=== PATIENT | male | born 1970 | race Caucasian/White ===

== ENCOUNTER 2016-10-19 17:32 | Emergency (ER) | payer BC ==
[~2016-10-19] VITALS: Ht 182.9 cm; Wt 79.4 kg
--- NOTE | 2016-10-19 17:32 | NUR ---
R FLANK PAIN X 2 DAYS. PT STATES IT FEELING LIKE KIDNEY STONES, HX OF KIDNEY STONES. NAD NOTED.PT AAO X4, AMB WITH STEADY GAIT. RR EVEN AND UNLABORED. PENDING MD GOODEN. PT PLACED IN GOWN AND MONITOR.
[2016-10-19] MEDS ORDERED: MORPHINE SULFATE INJ 2 MG/ML DISP.SYRIN IV ONE ×4 (18:00→21:30)
[2016-10-19] MEDS ORDERED: IV NS 0.9% 1,000 ML BAG IV ONE (18:00)
[2016-10-19] MEDS ORDERED: TAMSULOSIN 0.4 MG CAP.SR.24H PO ONE (18:00)
[2016-10-19] MEDS ORDERED: ONDANSETRON HCL/PF 4 MG/2 ML VIAL IVP ONE (18:00)
[2016-10-19] MEDS ORDERED: KETOROLAC TROMETHAMINE INJ 30 MG/ML VIAL IV ONE (18:00)
[2016-10-19] MEDS ORDERED: TAMSULOSIN 0.4 MG CAP.SR.24H ONE (18:12)
[2016-10-19] MEDS ORDERED: KETOROLAC TROMETHAMINE 15 MG/ML VIAL ONE (18:12)
[2016-10-19] MEDS ORDERED: IV NS 0.9% 1,000 ML ONE (18:12)
[2016-10-19] MEDS ORDERED: MORPHINE SULFATE INJ 2 MG/ML DISP.SYRIN ONE ×2 (18:12→20:04)
[2016-10-19] MEDS ORDERED: MORPHINE SULFATE INJ 4 MG/ML DISP.SYRIN ONE ×2 (18:12→21:30)
[2016-10-19] MEDS ORDERED: ONDANSETRON HCL/PF 4 MG/2 ML VIAL ONE (18:12)
[2016-10-19] MEDS ORDERED: IV SET PRIMARY 1 EA INFUS.SET MC ONE (18:12)
[2016-10-19 18:21] LABS: BASOPHILS # (AUTO) 0.8 /CMM (0.0-0.2); BASOPHILS % (AUTO) 4.3 % (0.0-2.0); EOSINOPHILS % (AUTO) 0.1 % (0.0-6.0); HEMATOCRIT 47 % (39-51); HEMOGLOBIN 16.5 g/dL (13.5-17.5); LYMPHOCYTES % (AUTO) 5.7 % (20.0-44.0); MEAN CORPUSCULAR HEMOGLOBIN 30 PG (26.0-33.0); MEAN CORPUSCULAR HGB CONC 35 g/dl (31.0-36.0); MEAN CORPUSCULAR VOLUME 87 fL (80-96); MONOCYTES # (AUTO) 0.6 /CMM (0.1-1.30); MONOCYTES % (AUTO) 3.6 % (2.0-12.0); NEUTROPHILS # (AUTO) 15.1 /CMM (1.8-8.9); NEUTROPHILS % (AUTO) 86.3 % (43.0-81.0); PLATELET COUNT (AUTO) 255 /CMM (150-450); RDW COEFFICIENT OF VARIATION 12.2 (11.5-15.0); RED BLOOD CELL COUNT(AUTO) 5.44 MIL/uL (4.5-6.0); WHITE BLOOD COUNT (AUTO) 17.5 K/uL (4.3-11.0)
--- NOTE | 2016-10-19 18:25 | NUR ---
PT TO CT
[2016-10-19 18:28] LABS: CALCIUM, SERUM 10.7 mg/dL (8.5-10.1); CREATININE 1.3 mg/dL (0.6-1.3); POTASSIUM 4.7 mmol/L (3.5-5.1)
[2016-10-19 18:36] LABS: ALBUMIN 4.6 g/dL (3.4-5.0); BILIRUBIN,DIRECT 0.1 mg/dL (0.0-0.2); TOTAL PROTEIN, SERUM 8.7 g/dL (6.4-8.2)
--- NOTE | 2016-10-19 18:40 | NUR ---
MEDICATIONS GIVEN ORDERED.
[2016-10-19 18:45] LABS: APPEARANCE,URINE Clear (CLEAR); BILIRUBIN,URINE Negative (NEGATIVE); BLOOD, URINE Moderate Ery/uL (NEGATIVE); COLOR,URINE Yellow (YELLOW); KETONES,URINE >=160 (NEGATIVE); LEUKOCYTE ESTERASE ,URINE Negative (NEGATIVE); NITRITE, URINE Negative (NEGATIVE); PROTEIN,URINE Negative (NEGATIVE); UGLUCOSE Negative (NEGATIVE); UROBILINOGEN,URINE 0.2 EU/dL (0.2)
--- NOTE | 2016-10-19 19:01 | NUR ---
assumed care, received report from am shift rn sudhir. pt resting quietly, no acute distress noted, resp even and unlabored. call light within reach. penidng ct abd/pelvis result.
[2016-10-19 19:23] LABS: ADD URINE CULTURE NO; BACTERIA,URINE Rare /HPF (None Seen); RBC,URINE 51-80 /HPF (0-2); SQUAMOUS EPITHELIAL CELL,UR Few /HPF (None Seen); URINE AMORPHOUS PHOSPHATES Many /HPF (None Seen); WBC,URINE 0-2 /HPF (0-3)
[2016-10-19] MEDS ORDERED: LEVOFLOXACIN 750 MG /D5W 150ML 750 MG in PREMIX 1 EA IV SCH (20:00)
[2016-10-19] MEDS ORDERED: LEVOFLOXACIN 750 MG /D5W 150ML 150 ML IV ONE (20:04)
[2016-10-19] MEDS ORDERED: IV SET PRIMARY PUMP SET 1 EA INFUS.SET MC ONE (20:04)
--- NOTE | 2016-10-19 20:13 | NUR ---
RN AT BEDSIDE TO MEDICATE PT.
--- NOTE | 2016-10-19 20:57 | NUR ---
Dina hutchison in ED - 10/19/[address] result received, johnie duffy.
--- NOTE | 2016-10-19 20:59 | NUR ---
Dina hutchison in ED - 10/19/16 at 2105 by MANOJ johnie noguera spoke to Dr. Ortega regarding pt ct head result.
--- NOTE | 2016-10-19 21:04 | NUR ---
ct result received. er md hair aware.
[2016-10-19 21:23] VITALS: BP 133/81
--- NOTE | 2016-10-19 21:23 | NUR ---
Joanna NASCIMENTO. at bedside talking to pt regaridng ct, lab results and discharge.
--- NOTE | 2016-10-19 21:28 | NUR ---
Note undone in EDM - 10/19/16 at 2134 by MANOJ IV removed. Catheter intact and site benign. Pressure and 4x4 applied to site. No bleeding noted. Patient discharged to home in stable condition. Written and verbal after care instructions given. Patient verbalizes understanding of instruction. ambulatory with a steady gait noted pt aaox4 no acute distress noted, resp even and unlabored. advice pt not to drive or operate any machinery due to pt was given narcotic medicine. pt verbalize understanding.
--- NOTE | 2016-10-19 22:14 | NUR ---
IV removed. Catheter intact and site benign. Pressure and 4x4 applied to site. No bleeding noted. Patient discharged to home in stable condition. Written and verbal after care instructions given. Patient verbalizes understanding of instruction. ambulatory with a steady gait noted pt aaox4 no acute distress noted, resp even and unlabored. advice pt not to drive or operate any machinery due to pt was given narcotic medicine. pt verbalize understanding.
== END 2016-10-19 22:14 | disposition home or self-care (01) ==
LOC: ER 17:34
DX: N20.0 Calculus of kidney (principal); Z88.0 Allergy status to penicillin
CPT/HCPCS: 36415; 74176; 80048; 80076; 81001; 85025; 87086; 96361; 96365; 96375; 96376; 99285; A4216; A4606; J1885; J1956 ×2; J2270 ×3; J2405; J7030; 81000-TC; Z7610